=== PATIENT | female | born 1985 | race Hispanic/Latino ===

== ENCOUNTER 2016-11-13 04:54 | Emergency (ER) | payer OTHER ==
[2016-11-13 06:47] LABS: BASO % 0.1 % (0.0-1.0); EOS # 0.1 K/mm3 (0.0-0.50); EOS % 0.6 % (0.0-3.0); LARGE UNSTAINED CELL # 0.1 K/mm3 (0.0-0.4); LARGE UNSTAINED CELL % 0.9 % (0.0-4.0); LYMPH # 1.1 K/mm3 (1.5-4.5); MEAN CORPUSCULAR HEMOGLOBIN 28.5 pg (27.0-33.0); MEAN CORPUSCULAR HGB CONC 31.5 g/dl (32.0-36.5); MEAN CORPUSCULAR VOLUME 90.7 fl (80.0-96.0); MONO # 0.5 K/mm3 (0.0-0.8); MONO % 3.3 % (0.0-5.0); NEUTROPHILS # 13.4 K/mm3 (1.8-7.7); NEUTROPHILS % 88.1 % (36.0-66.0); PLATELET COUNT, AUTOMATED 266 k/mm3 (150-450); RED CELL DISTRIBUTION WIDTH 12.4 % (11.5-14.5); WHITE BLOOD COUNT 15.2 K/mm3 (4.0-10.0)
[2016-11-13 07:01] LABS: CONTROL LINE HCG INT CTR LINE PRESENT
[2016-11-13 07:10] LABS: ALBUMIN 4.3 GM/DL (3.2-5.2); ALBUMIN/GLOBULIN RATIO 1.26 (1.00-1.93); ALKALINE PHOSPHATASE 66 U/L (45-117); ALT/SGPT 23 U/L (12-78); AMYLASE 62 U/L (25-115); ANION GAP 8 MEQ/L (8-16); AST/SGOT 18 U/L (15-37); BILIRUBIN,DIRECT < 0.1 MG/DL (0.0-0.2); BILIRUBIN,TOTAL 0.4 MG/DL (0.2-1.0); BLOOD UREA NITROGEN 12 MG/DL (7-18); CARBON DIOXIDE LEVEL 27 MEQ/L (21-32); CHLORIDE LEVEL 106 MEQ/L (98-107); CREATININE FOR GFR 0.76 MG/DL (0.55-1.02); GLOMERULAR FILTRATION RATE > 60.0 (>60); GLUCOSE, FASTING 111 MG/DL (70-105); POTASSIUM SERUM 3.7 MEQ/L (3.5-5.1); SODIUM LEVEL 141 MEQ/L (136-145); TOTAL PROTEIN 7.7 GM/DL (6.4-8.2)
[2016-11-13] MEDS ORDERED: ONDANSETRON 4MG/2ML VIAL (J2405) As Ordered ONE (07:15)
--- NOTE | 2016-11-13 08:33 | EDDOCDS ---
Physician Documentation [facility] Name: Jailene Seth Age: 31 yrs Sex: Female : 1985 Arrival Date: 11/13/2016 Time: 04:54 Bed 9 Private MD: Disposition: 11/13/16 07:48 Discharged to Home/Self Care. Impression: Vomiting, Diarrhea, unspecified. - Condition is Stable. - Discharge Instructions: Diarrhea, Nausea and Vomiting. - Prescriptions for ZOFRAN ODT 4 mg - dissolve 1 tablet by ORAL route 4 times per day As needed do not chew, do not swallow whole; 10 tablet. - Medication Reconciliation, Local Pharmacy Hours form. - Follow up: Silvio Santos [facility]; When: 1 - 2 days. - Problem is new. - Symptoms have improved. - Notes: return if worsening symptoms. clear liquid diet that you may progress as you feel better. Historical: - Allergies: No known drug Allergies; - Home Meds: 1. none - PMHx: none; - PSHx: ; - Social history: Smoking status: Patient states was never smoker of tobacco. No barriers to communication noted, The patient speaks fluent [place], Speaks appropriately for age. - Family history: Not pertinent. - : The pt / caregiver states he / she is not on anticoagulants. Home medication list is obtained from the patient. - Exposure Risk Screening:: None identified. ADMISSIONS MANAGER: 11/13 05:07 LMP 10/17/2016 nn1 Vital Signs: 05:07 BP 118 / 56; Pulse 95; Resp 18; Temp 99.5(O); Pulse Ox 98% on R/A; Weight 58.97 kg / nn1 130.01 lbs; Height 5 ft. 0 in. (152.40 cm); Pain 7/10; 08:30 BP 95 / 54 LA Supine (auto/reg); Pulse 87; Resp 18; Temp 99.8(O); Pulse Ox 99% on R/A; jjr Pain 0/10; 05:07 Body Mass Index 25.39 (58.97 kg, 152.40 cm) nn1 MDM: 06:17 NS 0.9% 1000 ml IV at bolus once ordered. mm11 06:17 IV Saline Lock ordered. mm11 06:17 Undress patient appropriately for examination ordered. mm11 06:18 Amylase Ordered. EDMS 06:18 Basic Metabolic Profile Ordered. EDMS 06:18 CBC with Diff Ordered. EDMS 06:18 HCG,Serum Qualitative Ordered. EDMS 06:18 Lipase Ordered. EDMS 06:18 Liver Profile Ordered. EDMS 06:19 NOTHING BY MOUTH+DIET ordered. EDMS 07:05 NS 0.9% 1000 ml IV at bolus once ordered. ml 07:05 Ondansetron 4 mg IVP once ordered. ml 07:05 CBC with Diff Reviewed. ml 07:05 HCG,Serum Qualitative Reviewed. ml 07:14 Financial registration complete. pm4 07:21 [facility] Payment Agreement was scanned into [employer] and attached to record. pm4 07:45 Basic Metabolic Profile Reviewed. ml 07:45 Amylase Reviewed. ml 07:45 HCG,Serum Qualitative Reviewed. ml 07:45 Lipase Reviewed. ml 07:45 Liver Profile Reviewed. ml Administered Medications: 06:30 Drug: NS 0.9% 1000 ml [sodium chloride 0.9 % intravenous solution] Route: IV; Rate: cf2 bolus; Site: right antecubital; 07:51 Follow up: IV Status: Completed infusion; IV Intake: 1000ml jjr 07:12 Drug: NS 0.9% 1000 ml [sodium chloride 0.9 % intravenous solution] Route: IV; Rate: jjr bolus; Site: right antecubital; 08:30 Follow up: IV Status: Completed infusion; IV Intake: 1000ml jjr 07:20 Drug: Ondansetron 4 mg [ondansetron HCl 2 mg/mL intravenous solution (2 mL)] Route: jjr IVP; Site: right antecubital; 07:52 Follow up: Response: Nausea is decreased jjr Signatures: Dispatcher [employer] EDID Tremayne Buenrostro MD MD ml Maynard, Matthew, DO DO mm11 Jessica Jauregui RN RN Dilma Clifford RN RN nn1 Amber Isidro RN RN cf2 Cole Myles, Reg Reg pm4 The chart was reviewed and I authenticate all verbal orders and agree with the evaluation and treatment provided.Attachments: 07:21 [facility] Payment Agreement pm4 MTDD
--- NOTE | 2016-11-13 08:33 | EDDOCDS ---
Nurse's Notes [facility] Name: Jailene Seth Age: 31 yrs Sex: Female : 1985 Arrival Date: 11/13/2016 Time: 04:54 Bed 9 Private MD: Diagnosis: Vomiting;Diarrhea, unspecified Presentation: 11/13 05:05 Presenting complaint: Patient states: she believes she has food poisoning. Reports nn1 eating chicken from [employer]. Reports abdominal cramping, waking up in cold sweats, vomiting and diarrhea. Adult Sepsis Screening: The patient does not have new or worsening altered mentation. Patient's respiratory rate is less than 22. Systolic blood pressure is greater than 100. Patient has a qSOFA score of 0- Negative Sepsis Screen. Suicide/Homicide risk assessment- the patient denies having any suicidal and/or homicidal ideations and does not present with any other emotional, behavioral or mental health complaints. 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 Transition of care: patient was not received from another setting of care. 05:05 Acuity: SHANE Level 3 nn1 05:05 Method Of Arrival: Walkin/Carried/Asstd nn1 Triage Assessment: 05:09 General: Appears in no apparent distress, Behavior is appropriate for age, cooperative. nn1 Pain: Location: abdomen Pain currently is 7 out of 10 on a pain scale. Quality of pain is described as crampy, Pain began 1900 yesterday. Pt Declines HIV testing. GI: Reports cramping, diarrhea, lower abdominal pain, upper abd pain, nausea, vomiting. Derm: Skin is pink, warm & dry. STILL CLEANER: 05:07 LMP 10/17/2016 nn1 Historical: - Allergies: No known drug Allergies; - Home Meds: 1. none - PMHx: none; - PSHx: ; - Social history: Smoking status: Patient states was never smoker of tobacco. No barriers to communication noted, The patient speaks fluent Korean, Speaks appropriately for age. - Family history: Not pertinent. - : The pt / caregiver states he / she is not on anticoagulants. Home medication list is obtained from the patient. - Exposure Risk Screening:: None identified. Screenin:39 Screening information is obtained from the patient. Fall risk: No risks identified. cf2 Assistance ADL's: requires no assistance with activities of daily living. Abuse/DV Screen: The patient / caregiver reports he/she is: not in a situation that causes fear, pain or injury. Nutritional screening: No deficits noted. Advance Directives: Further advance directive information is declined. home support is adequate. Assessment: 06:39 Adult Sepsis Screening: The patient does not have new or worsening altered mentation. cf2 Patient's respiratory rate is less than 22. Systolic blood pressure is greater than 100. Patient has a qSOFA score of 0- Negative Sepsis Screen. General: Appears ill, Behavior is appropriate for age, cooperative. Neurological: No deficits noted. EENT: No deficits noted. Cardiovascular: No deficits noted. Respiratory: No deficits noted. GI: Abdomen is flat, non- distended Bowel sounds present X 4 quads. Reports nausea, vomiting. : No deficits noted. Derm: No deficits noted. Musculoskeletal: No deficits noted. Injury Description: No known injury. 07:20 General: Appears in no apparent distress, well nourished, well groomed, Behavior is jjr appropriate for age. Pain: Location: abdomen Quality of pain is described as crampy. Neurological: No deficits noted. Respiratory: No deficits noted. GI: Reports cramping, diarrhea, nausea, vomiting. Derm: No deficits noted. 08:31 General: Appears in no apparent distress, Behavior is appropriate for age. Pain: Denies jjr pain. Derm: No deficits noted. Vital Signs: 05:07 BP 118 / 56; Pulse 95; Resp 18; Temp 99.5(O); Pulse Ox 98% on R/A; Weight 58.97 kg; nn1 Height 5 ft. 0 in. (152.40 cm); Pain 7/10; 08:30 BP 95 / 54 LA Supine (auto/reg); Pulse 87; Resp 18; Temp 99.8(O); Pulse Ox 99% on R/A; jjr Pain 0/10; 05:07 Body Mass Index 25.39 (58.97 kg, 152.40 cm) nn1 Vitals: 05:07 Log In Time: November 13, 2016 at 04:54. nn1 ED Course: 04:55 Patient visited by Estela Gipson. [facility] 04:55 Patient moved to Waiting [facility] 05:06 Triage Initiated nn1 05:35 Amber Isidro,RN is Primary Nurse. cf2 05:35 Jessica Tan,ESTUARDO is Primary Nurse. nn1 05:35 Patient visited by Amber Isidro RN. cf2 05:35 Patient moved to 9 nn1 06:11 Patient visited by Amber Isidro RN. cf2 06:24 Patient visited by Amber Isidro RN. cf2 06:39 Patient visited by Amber Isidro RN. cf2 06:39 The patient / caregiver is instructed regarding the plan of care and ED course. Patient cf2 has correct armband on for positive identification. Placed in gown. Bed in low position. Call light in reach. Side rails up X 1. Side rails up X2. Property :Personal belongings accompany Pt. Door closed. Noise minimized. Visitors limited. Lights dimmed. Moved to private room. Verbal reassurance given. Warm blanket given. Pillow given. Head of bed elevated. Diet: Patient is NPO. 06:39 Inserted saline lock: 20 gauge in right antecubital area and blood collected. The cf2 patient tolerated the procedure well. No procedures done that require assistance. 06:57 Tremayne Buenrostro MD is Attending Physician. ml 06:57 Patient visited by Tremayne Buenrostro MD. ml 07:12 Jessica Jauregui RN is Primary Nurse. jjr 07:21 Patient name changed from Crystal\S\\S\Rolo\S\ to Crystal\S\Debora\S\Rolo. EDMS 07:21 Patient visited by Jessica Jauregui RN. jjr 07:21 [facility] Payment Agreement was scanned into [employer] and attached to record. pm4 07:28 Primary Nurse role handed off by Jessica Tan RN mlb1 07:48 [facility] ml 08:31 Discontinued lock intact, bleeding controlled, pressure dressing applied, No jjr redness/swelling at site. Administered Medications: 06:30 Drug: NS 0.9% 1000 ml [sodium chloride 0.9 % intravenous solution] Route: IV; Rate: cf2 bolus; Site: right antecubital; 07:51 Follow up: IV Status: Completed infusion; IV Intake: 1000ml jjr 07:12 Drug: NS 0.9% 1000 ml [sodium chloride 0.9 % intravenous solution] Route: IV; Rate: jjr bolus; Site: right antecubital; 08:30 Follow up: IV Status: Completed infusion; IV Intake: 1000ml jjr 07:20 Drug: Ondansetron 4 mg [ondansetron HCl 2 mg/mL intravenous solution (2 mL)] Route: jjr IVP; Site: right antecubital; 07:52 Follow up: Response: Nausea is decreased jjr Intake: 07:51 IV: 1000.00ml; Total: 1000.00ml. jjr 08:30 IV: 1000.00ml; Total: 2000.00ml. jjr Order Results: Lab Order: Amylase; SPEC'M 11/13/16 06:36 Test: AMYLASE; Value: 62; Range: 25-115; Units: U/L; Status: F Lab Order: Basic Metabolic Profile; SPEC'M 11/13/16 06:36 Test: GLUCOSE, FASTING; Value: 111; Range: 70-105; Abnormal: Above high normal; Units: MG/DL; Status: F Test: BLOOD UREA NITROGEN; Value: 12; Range: 7-18; Units: MG/DL; Status: F Test: CREATININE FOR GFR; Value: 0.76; Range: 0.55-1.02; Units: MG/DL; Status: F Test: SODIUM LEVEL; Range: 136-145; Units: MEQ/L; Status: I Test: POTASSIUM SERUM; Range: 3.5-5.1; Units: MEQ/L; Status: I Test: CHLORIDE LEVEL; Range: 98-107; Units: MEQ/L; Status: I Test: CARBON DIOXIDE LEVEL; Range: 21-32; Units: MEQ/L; Status: I Test: ANION GAP; Range: 8-16; Units: MEQ/L; Status: I Test: CALCIUM LEVEL; Range: 8.5-10.1; Units: MG/DL; Status: I Test: GLOMERULAR FILTRATION RATE; Value: > 60.0; Range: >60; Status: F Test: SODIUM LEVEL; Value: 141; Range: 136-145; Units: MEQ/L; Status: F Test: POTASSIUM SERUM; Value: 3.7; Range: 3.5-5.1; Units: MEQ/L; Status: F Test: CHLORIDE LEVEL; Value: 106; Range: 98-107; Units: MEQ/L; Status: F Test: CARBON DIOXIDE LEVEL; Value: 27; Range: 21-32; Units: MEQ/L; Status: F Test: ANION GAP; Value: 8; Range: 8-16; Units: MEQ/L; Status: F Test: CALCIUM LEVEL; Value: 9.0; Range: 8.5-10.1; Units: MG/DL; Status: F Test Note: ; Units are mL/min/1.73 m2 Chronic Kidney Disease Staging per NKF: Stage I & II GFR >=60 Normal to Mildly Decreased Stage III GFR 30-59 Moderately Decreased Stage IV GFR 15-29 Severely Decreased Stage V GFR <15 Very Little GFR Left ESRD GFR <15 on PLASTIC DESIGN APPLIER Lab Order: CBC with Diff; SPEC'M 11/13/16 06:36 Test: WHITE BLOOD COUNT; Value: 15.2; Range: 4.0-10.0; Abnormal: Above high normal; Units: K/mm3; Status: F Test: RED BLOOD COUNT; Value: 4.77; Range: 4.00-5.40; Units: M/mm3; Status: F Test: HEMOGLOBIN; Value: 13.6; Range: 12.0-16.0; Units: g/dl; Status: F Test: HEMATOCRIT; Value: 43.3; Range: 36.0-47.0; Units: %; Status: F Test: MEAN CORPUSCULAR VOLUME; Value: 90.7; Range: 80.0-96.0; Units: fl; Status: F Test: MEAN CORPUSCULAR HEMOGLOBIN; Value: 28.5; Range: 27.0-33.0; Units: pg; Status: F Test: MEAN CORPUSCULAR HGB CONC; Value: 31.5; Range: 32.0-36.5; Abnormal: Below low normal; Units: g/dl; Status: F Test: RED CELL DISTRIBUTION WIDTH; Value: 12.4; Range: 11.5-14.5; Units: %; Status: F Test: PLATELET COUNT, AUTOMATED; Value: 266; Range: 150-450; Units: k/mm3; Status: F Test: NEUTROPHILS %; Value: 88.1; Range: 36.0-66.0; Abnormal: Above high normal; Units: %; Status: F Test: LYMPH %; Value: 7.0; Range: 24.0-44.0; Abnormal: Below low normal; Units: %; Status: F Test: MONO %; Value: 3.3; Range: 0.0-5.0; Units: %; Status: F Test: EOS %; Value: 0.6; Range: 0.0-3.0; Units: %; Status: F Test: BASO %; Value: 0.1; Range: 0.0-1.0; Units: %; Status: F Test: LARGE UNSTAINED CELL %; Value: 0.9; Range: 0.0-4.0; Units: %; Status: F Test: NEUTROPHILS #; Value: 13.4; Range: 1.8-7.7; Abnormal: Above high normal; Units: K/mm3; Status: F Test: LYMPH #; Value: 1.1; Range: 1.5-4.5; Abnormal: Below low normal; Units: K/mm3; Status: F Test: MONO #; Value: 0.5; Range: 0.0-0.8; Units: K/mm3; Status: F Test: EOS #; Value: 0.1; Range: 0.0-0.50; Units: K/mm3; Status: F Test: BASO #; Value: 0.0; Range: 0.0-0.2; Units: K/mm3; Status: F Test: LARGE UNSTAINED CELL #; Value: 0.1; Range: 0.0-0.4; Units: K/mm3; Status: F Lab Order: HCG,Serum Qualitative; SPEC' 11/13/16 06:36 Test: HCG, SERUM QUALITATIVE; Value: NEGATIVE; Range: NEGATIVE; Status: F Lab Order: Lipase; SPEC11/13/16 06:36 Test: LIPASE; Value: 91; Range: 73-393; Units: U/L; Status: F Lab Order: Liver Profile; SPEC' 11/13/16 06:36 Test: AST/SGOT; Value: 18; Range: 15-37; Units: U/L; Status: F Test: ALT/SGPT; Value: 23; Range: 12-78; Units: U/L; Status: F Test: ALKALINE PHOSPHATASE; Value: 66; Range: 45-117; Units: U/L; Status: F Test: BILIRUBIN,TOTAL; Value: 0.4; Range: 0.2-1.0; Units: MG/DL; Status: F Test: BILIRUBIN,DIRECT; Value: < 0.1; Range: 0.0-0.2; Units: MG/DL; Status: F Test: TOTAL PROTEIN; Value: 7.7; Range: 6.4-8.2; Units: GM/DL; Status: F Test: ALBUMIN; Value: 4.3; Range: 3.2-5.2; Units: GM/DL; Status: F Test: ALBUMIN/GLOBULIN RATIO; Value: 1.26; Range: 1.00-1.93; Status: F Outcome: 07:48 Discharge ordered by Provider. 08:31 Discharge Assessment: patient administered narcotics - no. The following High Risk jjr Discharge criteria are identified: None. Discharged to home ambulatory, with significant other. Condition: stable. Discharge instructions given to patient, Instructed on discharge instructions, follow up and referral plans. medication usage, diet, Demonstrated understanding of instructions, medications, Prescriptions given X 1. No special radiology studies were completed. 08:32 Patient left the ED. jjr Signatures: Dispatcher [employer] EDMS Tremayne Buenrostro MD MD Cedric Guy RN RN mlb1 Jessica Jauregui RN RN Dilma Clifford RN RN nn1 Estela Gipson ChristinaRN RN cf2 Cole Myles, Reg Reg pm4 MTDD
--- NOTE | 2016-11-15 09:33 | EDDOCDS ---
Nurse's Notes [facility] Name: Jailene Seth Age: 31 yrs Sex: Female : 1985 Arrival Date: 11/13/2016 Time: 04:54 Bed 9 Private MD: Diagnosis: Vomiting;Diarrhea, unspecified Presentation: 11/13 05:05 Presenting complaint: Patient states: she believes she has food poisoning. Reports nn1 eating chicken from [employer]. Reports abdominal cramping, waking up in cold sweats, vomiting and diarrhea. Adult Sepsis Screening: The patient does not have new or worsening altered mentation. Patient's respiratory rate is less than 22. Systolic blood pressure is greater than 100. Patient has a qSOFA score of 0- Negative Sepsis Screen. Suicide/Homicide risk assessment- the patient denies having any suicidal and/or homicidal ideations and does not present with any other emotional, behavioral or mental health complaints. 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 Transition of care: patient was not received from another setting of care. 05:05 Acuity: SHANE Level 3 nn1 05:05 Method Of Arrival: Walkin/Carried/Asstd nn1 Triage Assessment: 05:09 General: Appears in no apparent distress, Behavior is appropriate for age, cooperative. nn1 Pain: Location: abdomen Pain currently is 7 out of 10 on a pain scale. Quality of pain is described as crampy, Pain began 1900 yesterday. Pt Declines HIV testing. GI: Reports cramping, diarrhea, lower abdominal pain, upper abd pain, nausea, vomiting. Derm: Skin is pink, warm & dry. 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 none - PMHx: none; - PSHx: ; - Social history: Smoking status: Patient states was never smoker of tobacco. No barriers to communication noted, The patient speaks fluent Kinyarwanda, Speaks appropriately for age. - Family history: Not pertinent. - : The pt / caregiver states he / she is not on anticoagulants. Home medication list is obtained from the patient. - Exposure Risk Screening:: None identified. Screenin:39 Screening information is obtained from the patient. Fall risk: No risks identified. cf2 Assistance ADL's: requires no assistance with activities of daily living. Abuse/DV Screen: The patient / caregiver reports he/she is: not in a situation that causes fear, pain or injury. Nutritional screening: No deficits noted. Advance Directives: Further advance directive information is declined. home support is adequate. Assessment: 06:39 Adult Sepsis Screening: The patient does not have new or worsening altered mentation. cf2 Patient's respiratory rate is less than 22. Systolic blood pressure is greater than 100. Patient has a qSOFA score of 0- Negative Sepsis Screen. General: Appears ill, Behavior is appropriate for age, cooperative. Neurological: No deficits noted. EENT: No deficits noted. Cardiovascular: No deficits noted. Respiratory: No deficits noted. GI: Abdomen is flat, non- distended Bowel sounds present X 4 quads. Reports nausea, vomiting. : No deficits noted. Derm: No deficits noted. Musculoskeletal: No deficits noted. Injury Description: No known injury. 07:20 General: Appears in no apparent distress, well nourished, well groomed, Behavior is jjr appropriate for age. Pain: Location: abdomen Quality of pain is described as crampy. Neurological: No deficits noted. Respiratory: No deficits noted. GI: Reports cramping, diarrhea, nausea, vomiting. Derm: No deficits noted. 08:31 General: Appears in no apparent distress, Behavior is appropriate for age. Pain: Denies jjr pain. Derm: No deficits noted. Vital Signs: 05:07 BP 118 / 56; Pulse 95; Resp 18; Temp 99.5(O); Pulse Ox 98% on R/A; Weight 58.97 kg; nn1 Height 5 ft. 0 in. (152.40 cm); Pain 7/10; 08:30 BP 95 / 54 LA Supine (auto/reg); Pulse 87; Resp 18; Temp 99.8(O); Pulse Ox 99% on R/A; jjr Pain 0/10; 05:07 Body Mass Index 25.39 (58.97 kg, 152.40 cm) nn1 Vitals: 05:07 Log In Time: November 13, 2016 at 04:54. nn1 ED Course: 04:55 Patient visited by Estela Gipson. [facility] 04:55 Patient moved to Waiting [facility] 05:06 Triage Initiated nn1 05:35 Amber Isidro,RN is Primary Nurse. cf2 05:35 Jessica Tan,ESTUARDO is Primary Nurse. nn1 05:35 Patient visited by Amber Isidro RN. cf2 05:35 Patient moved to 9 nn1 06:11 Patient visited by Amber Isidro RN. cf2 06:24 Patient visited by Amber Isidro RN. cf2 06:39 Patient visited by Amber Isidro RN. cf2 06:39 The patient / caregiver is instructed regarding the plan of care and ED course. Patient cf2 has correct armband on for positive identification. Placed in gown. Bed in low position. Call light in reach. Side rails up X 1. Side rails up X2. Property :Personal belongings accompany Pt. Door closed. Noise minimized. Visitors limited. Lights dimmed. Moved to private room. Verbal reassurance given. Warm blanket given. Pillow given. Head of bed elevated. Diet: Patient is NPO. 06:39 Inserted saline lock: 20 gauge in right antecubital area and blood collected. The cf2 patient tolerated the procedure well. No procedures done that require assistance. 06:57 Tremayne Buenrostro MD is Attending Physician. ml 06:57 Patient visited by Tremayne Buenrostro MD. ml 07:12 Jessica Jauregui RN is Primary Nurse. jjr 07:21 Patient name changed from Crystal\S\\S\Rolo\S\ to Crystal\S\Debora\S\Rolo. EDMS 07:21 Patient visited by Jessica Jauregui RN. jjr 07:21 [facility] Payment Agreement was scanned into [employer] and attached to record. pm4 07:28 Primary Nurse role handed off by Jessica Tan RN mlb1 07:48 [facility] ml 08:31 Discontinued lock intact, bleeding controlled, pressure dressing applied, No jjr redness/swelling at site. 17:42 T-Sheet-- Draft Copy was scanned into [employer] and attached to record. klr Administered Medications: 06:30 Drug: NS 0.9% 1000 ml [sodium chloride 0.9 % intravenous solution] Route: IV; Rate: cf2 bolus; Site: right antecubital; 07:51 Follow up: IV Status: Completed infusion; IV Intake: 1000ml jjr 07:12 Drug: NS 0.9% 1000 ml [sodium chloride 0.9 % intravenous solution] Route: IV; Rate: jjr bolus; Site: right antecubital; 08:30 Follow up: IV Status: Completed infusion; IV Intake: 1000ml jjr 07:20 Drug: Ondansetron 4 mg [ondansetron HCl 2 mg/mL intravenous solution (2 mL)] Route: jjr IVP; Site: right antecubital; 07:52 Follow up: Response: Nausea is decreased jjr Intake: 07:51 IV: 1000.00ml; Total: 1000.00ml. jjr 08:30 IV: 1000.00ml; Total: 2000.00ml. jjr Order Results: Lab Order: Amylase; SPEC'M 11/13/16 06:36 Test: AMYLASE; Value: 62; Range: 25-115; Units: U/L; Status: F Lab Order: Basic Metabolic Profile; SPEC'M 11/13/16 06:36 Test: GLUCOSE, FASTING; Value: 111; Range: 70-105; Abnormal: Above high normal; Units: MG/DL; Status: F Test: BLOOD UREA NITROGEN; Value: 12; Range: 7-18; Units: MG/DL; Status: F Test: CREATININE FOR GFR; Value: 0.76; Range: 0.55-1.02; Units: MG/DL; Status: F Test: SODIUM LEVEL; Range: 136-145; Units: MEQ/L; Status: I Test: POTASSIUM SERUM; Range: 3.5-5.1; Units: MEQ/L; Status: I Test: CHLORIDE LEVEL; Range: 98-107; Units: MEQ/L; Status: I Test: CARBON DIOXIDE LEVEL; Range: 21-32; Units: MEQ/L; Status: I Test: ANION GAP; Range: 8-16; Units: MEQ/L; Status: I Test: CALCIUM LEVEL; Range: 8.5-10.1; Units: MG/DL; Status: I Test: GLOMERULAR FILTRATION RATE; Value: > 60.0; Range: >60; Status: F Test: SODIUM LEVEL; Value: 141; Range: 136-145; Units: MEQ/L; Status: F Test: POTASSIUM SERUM; Value: 3.7; Range: 3.5-5.1; Units: MEQ/L; Status: F Test: CHLORIDE LEVEL; Value: 106; Range: 98-107; Units: MEQ/L; Status: F Test: CARBON DIOXIDE LEVEL; Value: 27; Range: 21-32; Units: MEQ/L; Status: F Test: ANION GAP; Value: 8; Range: 8-16; Units: MEQ/L; Status: F Test: CALCIUM LEVEL; Value: 9.0; Range: 8.5-10.1; Units: MG/DL; Status: F Test Note: ; Units are mL/min/1.73 m2 Chronic Kidney Disease Staging per NKF: Stage I & II GFR >=60 Normal to Mildly Decreased Stage III GFR 30-59 Moderately Decreased Stage IV GFR 15-29 Severely Decreased Stage V GFR <15 Very Little GFR Left ESRD GFR <15 on [employer] Lab Order: CBC with Diff; SPEC'M 11/13/16 06:36 Test: WHITE BLOOD COUNT; Value: 15.2; Range: 4.0-10.0; Abnormal: Above high normal; Units: K/mm3; Status: F Test: RED BLOOD COUNT; Value: 4.77; Range: 4.00-5.40; Units: M/mm3; Status: F Test: HEMOGLOBIN; Value: 13.6; Range: 12.0-16.0; Units: g/dl; Status: F Test: HEMATOCRIT; Value: 43.3; Range: 36.0-47.0; Units: %; Status: F Test: MEAN CORPUSCULAR VOLUME; Value: 90.7; Range: 80.0-96.0; Units: fl; Status: F Test: MEAN CORPUSCULAR HEMOGLOBIN; Value: 28.5; Range: 27.0-33.0; Units: pg; Status: F Test: MEAN CORPUSCULAR HGB CONC; Value: 31.5; Range: 32.0-36.5; Abnormal: Below low normal; Units: g/dl; Status: F Test: RED CELL DISTRIBUTION WIDTH; Value: 12.4; Range: 11.5-14.5; Units: %; Status: F Test: PLATELET COUNT, AUTOMATED; Value: 266; Range: 150-450; Units: k/mm3; Status: F Test: NEUTROPHILS %; Value: 88.1; Range: 36.0-66.0; Abnormal: Above high normal; Units: %; Status: F Test: LYMPH %; Value: 7.0; Range: 24.0-44.0; Abnormal: Below low normal; Units: %; Status: F Test: MONO %; Value: 3.3; Range: 0.0-5.0; Units: %; Status: F Test: EOS %; Value: 0.6; Range: 0.0-3.0; Units: %; Status: F Test: BASO %; Value: 0.1; Range: 0.0-1.0; Units: %; Status: F Test: LARGE UNSTAINED CELL %; Value: 0.9; Range: 0.0-4.0; Units: %; Status: F Test: NEUTROPHILS #; Value: 13.4; Range: 1.8-7.7; Abnormal: Above high normal; Units: K/mm3; Status: F Test: LYMPH #; Value: 1.1; Range: 1.5-4.5; Abnormal: Below low normal; Units: K/mm3; Status: F Test: MONO #; Value: 0.5; Range: 0.0-0.8; Units: K/mm3; Status: F Test: EOS #; Value: 0.1; Range: 0.0-0.50; Units: K/mm3; Status: F Test: BASO #; Value: 0.0; Range: 0.0-0.2; Units: K/mm3; Status: F Test: LARGE UNSTAINED CELL #; Value: 0.1; Range: 0.0-0.4; Units: K/mm3; Status: F Lab Order: HCG,Serum Qualitative; SPEC'M 11/13/16 06:36 Test: HCG, SERUM QUALITATIVE; Value: NEGATIVE; Range: NEGATIVE; Status: F Lab Order: Lipase; SPEC'11/13/16 06:36 Test: LIPASE; Value: 91; Range: 73-393; Units: U/L; Status: F Lab Order: Liver Profile; SPEC'11/13/16 06:36 Test: AST/SGOT; Value: 18; Range: 15-37; Units: U/L; Status: F Test: ALT/SGPT; Value: 23; Range: 12-78; Units: U/L; Status: F Test: ALKALINE PHOSPHATASE; Value: 66; Range: 45-117; Units: U/L; Status: F Test: BILIRUBIN,TOTAL; Value: 0.4; Range: 0.2-1.0; Units: MG/DL; Status: F Test: BILIRUBIN,DIRECT; Value: < 0.1; Range: 0.0-0.2; Units: MG/DL; Status: F Test: TOTAL PROTEIN; Value: 7.7; Range: 6.4-8.2; Units: GM/DL; Status: F Test: ALBUMIN; Value: 4.3; Range: 3.2-5.2; Units: GM/DL; Status: F Test: ALBUMIN/GLOBULIN RATIO; Value: 1.26; Range: 1.00-1.93; Status: F Outcome: 07:48 Discharge ordered by Provider. 08:31 Discharge Assessment: patient administered narcotics - no. The following High Risk jjr Discharge criteria are identified: None. Discharged to home ambulatory, with significant other. Condition: stable. Discharge instructions given to patient, Instructed on discharge instructions, follow up and referral plans. medication usage, diet, Demonstrated understanding of instructions, medications, Prescriptions given X 1. No special radiology studies were completed. 08:32 Patient left the ED. jjr Signatures: Dispatcher [employer] EDDC Tremayne Buenrostro MD MD ml Barney, Michael B RN RN mlb1 Jessica Jauregui RN RN Dilma Clifford RN RN nn1 Estela Gipson Kathie klr Familetti-Gonzalez, ChristinaRN RN cf2 Cole Myles, Reg Reg pm4 Chart Complete MTDD
--- NOTE | 2016-11-15 09:33 | EDDOCDS ---
Physician Documentation [facility] Name: Jailene Seth Age: 31 yrs Sex: Female : 1985 Arrival Date: 11/13/2016 Time: 04:54 Bed 9 Private MD: Disposition: 11/13/16 07:48 Discharged to Home/Self Care. Impression: Vomiting, Diarrhea, unspecified. - Condition is Stable. - Discharge Instructions: Diarrhea, Nausea and Vomiting. - Prescriptions for ZOFRAN ODT 4 mg - dissolve 1 tablet by ORAL route 4 times per day As needed do not chew, do not swallow whole; 10 tablet. - Medication Reconciliation, Local Pharmacy Hours form. - Follow up: Silvio Santos [facility]; When: 1 - 2 days. - Problem is new. - Symptoms have improved. - Notes: return if worsening symptoms. clear liquid diet that you may progress as you feel better. Historical: - Allergies: No known drug Allergies; - Home Meds: 1. none - PMHx: none; - PSHx: ; - Social history: Smoking status: Patient states was never smoker of tobacco. No barriers to communication noted, The patient speaks fluent Vincentian, Speaks appropriately for age. - Family history: Not pertinent. - : The pt / caregiver states he / she is not on anticoagulants. Home medication list is obtained from the patient. - Exposure Risk Screening:: None identified. 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 0 in. (152.40 cm); Pain 7/10; 08:30 BP 95 / 54 LA Supine (auto/reg); Pulse 87; Resp 18; Temp 99.8(O); Pulse Ox 99% on R/A; jjr Pain 0/10; 05:07 Body Mass Index 25.39 (58.97 kg, 152.40 cm) nn1 MDM: 06:17 NS 0.9% 1000 ml IV at bolus once ordered. mm11 06:17 IV Saline Lock ordered. mm11 06:17 Undress patient appropriately for examination ordered. mm11 06:18 Amylase Ordered. EDMS 06:18 Basic Metabolic Profile Ordered. EDMS 06:18 CBC with Diff Ordered. EDMS 06:18 HCG,Serum Qualitative Ordered. EDMS 06:18 Lipase Ordered. EDMS 06:18 Liver Profile Ordered. EDMS 06:19 NOTHING BY MOUTH+DIET ordered. EDMS 07:05 NS 0.9% 1000 ml IV at bolus once ordered. ml 07:05 Ondansetron 4 mg IVP once ordered. ml 07:05 CBC with Diff Reviewed. ml 07:05 HCG,Serum Qualitative Reviewed. ml 07:14 Financial registration complete. pm4 07:21 [facility] Payment Agreement was scanned into [employer] and attached to record. pm4 07:45 Basic Metabolic Profile Reviewed. ml 07:45 Amylase Reviewed. ml 07:45 HCG,Serum Qualitative Reviewed. ml 07:45 Lipase Reviewed. ml 07:45 Liver Profile Reviewed. ml 17:42 T-Sheet-- Draft Copy was scanned into [employer] and attached to record. klr Administered Medications: 06:30 Drug: NS 0.9% 1000 ml [sodium chloride 0.9 % intravenous solution] Route: IV; Rate: cf2 bolus; Site: right antecubital; 07:51 Follow up: IV Status: Completed infusion; IV Intake: 1000ml jjr 07:12 Drug: NS 0.9% 1000 ml [sodium chloride 0.9 % intravenous solution] Route: IV; Rate: jjr bolus; Site: right antecubital; 08:30 Follow up: IV Status: Completed infusion; IV Intake: 1000ml jjr 07:20 Drug: Ondansetron 4 mg [ondansetron HCl 2 mg/mL intravenous solution (2 mL)] Route: jjr IVP; Site: right antecubital; 07:52 Follow up: Response: Nausea is decreased jjr Signatures: Dispatcher [employer] EDMS Tremayne Buenrostro MD MD ml Maynard, Matthew, DO DO mm11 Jessica Jauregui RN RN jjr Nunez, Nikkole, RN RN nn1 Mirta Blanca Christina, RN RN cf2 Cole Myles, Reg Reg pm4 The chart was reviewed and I authenticate all verbal orders and agree with the evaluation and treatment provided.Attachments: 07:21 [facility] Payment Agreement pm4 17:42 T-Sheet-- Draft Copy klr Chart Complete MTDD
--- NOTE | 2016-11-15 09:33 | EDDOCDS ---
Physician Documentation [facility] Name: Jailene Seth Age: 31 yrs Sex: Female : 1985 Arrival Date: 11/13/2016 Time: 04:54 Bed 9 Private MD: Disposition: 11/13/16 07:48 Discharged to Home/Self Care. Impression: Vomiting, Diarrhea, unspecified. - Condition is Stable. - Discharge Instructions: Diarrhea, Nausea and Vomiting. - Prescriptions for ZOFRAN ODT 4 mg - dissolve 1 tablet by ORAL route 4 times per day As needed do not chew, do not swallow whole; 10 tablet. - Medication Reconciliation, Local Pharmacy Hours form. - Follow up: Silvio Santos [facility]; When: 1 - 2 days. - Problem is new. - Symptoms have improved. - Notes: return if worsening symptoms. clear liquid diet that you may progress as you feel better. Historical: - Allergies: No known drug Allergies; - Home Meds: 1. none - PMHx: none; - PSHx: ; - Social history: Smoking status: Patient states was never smoker of tobacco. No barriers to communication noted, The patient speaks fluent Libyan, Speaks appropriately for age. - Family history: Not pertinent. - : The pt / caregiver states he / she is not on anticoagulants. Home medication list is obtained from the patient. - Exposure Risk Screening:: None identified. 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 0 in. (152.40 cm); Pain 7/10; 08:30 BP 95 / 54 LA Supine (auto/reg); Pulse 87; Resp 18; Temp 99.8(O); Pulse Ox 99% on R/A; jjr Pain 0/10; 05:07 Body Mass Index 25.39 (58.97 kg, 152.40 cm) nn1 MDM: 06:17 NS 0.9% 1000 ml IV at bolus once ordered. mm11 06:17 IV Saline Lock ordered. mm11 06:17 Undress patient appropriately for examination ordered. mm11 06:18 Amylase Ordered. EDMS 06:18 Basic Metabolic Profile Ordered. EDMS 06:18 CBC with Diff Ordered. EDMS 06:18 HCG,Serum Qualitative Ordered. EDMS 06:18 Lipase Ordered. EDMS 06:18 Liver Profile Ordered. EDMS 06:19 NOTHING BY MOUTH+DIET ordered. EDMS 07:05 NS 0.9% 1000 ml IV at bolus once ordered. ml 07:05 Ondansetron 4 mg IVP once ordered. ml 07:05 CBC with Diff Reviewed. ml 07:05 HCG,Serum Qualitative Reviewed. ml 07:14 Financial registration complete. pm4 07:21 [facility] Payment Agreement was scanned into [employer] and attached to record. pm4 07:45 Basic Metabolic Profile Reviewed. ml 07:45 Amylase Reviewed. ml 07:45 HCG,Serum Qualitative Reviewed. ml 07:45 Lipase Reviewed. ml 07:45 Liver Profile Reviewed. ml 17:42 T-Sheet-- Draft Copy was scanned into [employer] and attached to record. klr Administered Medications: 06:30 Drug: NS 0.9% 1000 ml [sodium chloride 0.9 % intravenous solution] Route: IV; Rate: cf2 bolus; Site: right antecubital; 07:51 Follow up: IV Status: Completed infusion; IV Intake: 1000ml jjr 07:12 Drug: NS 0.9% 1000 ml [sodium chloride 0.9 % intravenous solution] Route: IV; Rate: jjr bolus; Site: right antecubital; 08:30 Follow up: IV Status: Completed infusion; IV Intake: 1000ml jjr 07:20 Drug: Ondansetron 4 mg [ondansetron HCl 2 mg/mL intravenous solution (2 mL)] Route: jjr IVP; Site: right antecubital; 07:52 Follow up: Response: Nausea is decreased jjr Signatures: Dispatcher [employer] EDMS Tremayne Buenrostro MD MD ml Maynard, Matthew, DO DO mm11 Jessica Jauregui RN RN jjr Nunez, Nikkole, RN RN nn1 Mirta Blanca Christina, RN RN cf2 Cole Myles, Reg Reg pm4 The chart was reviewed and I authenticate all verbal orders and agree with the evaluation and treatment provided.Attachments: 07:21 [facility] Payment Agreement pm4 17:42 T-Sheet-- Draft Copy klr Chart Complete MTDD
== END 2016-11-13 08:32 | disposition home or self-care (01) ==
LOC: M ED 04:54
DX: R11.10 Vomiting, unspecified (principal); R19.7 Diarrhea, unspecified
CPT/HCPCS: 36415; 80048; 80076; 82150; 83690; 84703; 85025; 96361; 96374; 99284; J2405